=== PATIENT | male | born 1980 | race American Indian/Alaskan Native ===

== ENCOUNTER 2018-08-05 17:22 | Emergency (ER) | payer OTHER ==
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
== END 2018-08-05 18:02 | disposition left against medical advice (07) ==
LOC: ED 17:22
DX: Z20.2 Contact with and (suspected) exposure to infections with a predominantly sexual mode of transmission (principal)
CPT/HCPCS: 99282

== ENCOUNTER 2020-04-18 01:16 | Emergency (ER) | payer SELFPAY ==
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
[2020-04-18] MEDS ORDERED: ACETAMINOPHEN 500 MG TAB PO ONE (04:26)
[2020-04-18] MEDS ORDERED: IBUPROFEN 600 MG TAB PO ONE (04:26)
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
[2020-04-18 05:56] VITALS: BP 124/82
== END 2020-04-18 05:55 | disposition home or self-care (01) ==
LOC: ED 01:16
DX: M62.838 Other muscle spasm (principal); M62.830 Muscle spasm of back; F17.200 Nicotine dependence, unspecified, uncomplicated; Z79.899 Other long term (current) drug therapy; V49.49XA Driver injured in collision with other motor vehicles in traffic accident, initial encounter; Y92.410 Unspecified street and highway as the place of occurrence of the external cause; Y93.89 Activity, other specified; Y99.8 Other external cause status
CPT/HCPCS: 72040; 72100